=== PATIENT | female | born 1970 | race Hispanic/Latino ===

== ENCOUNTER → 2024-11-20 | Day surgery (SDC) | payer BC ==
[2024-11-09 09:55] LABS: BASOPHILS % 0.8 % (0.0-1.0); EOSINOPHILS % 1.3 % (0.0-6.0); LYMPHOCYTES % 25.1 % (18.0-39.1); MONOCYTES % 8.5 % (4.4-11.3); NEUTROPHILS % 64.0 % (38.7-80.0); RED CELL DISTRIBUTION WIDTH 12.5 % (11.7-14.4)
[2024-11-09 10:17] LABS: INR 1.02
[2024-11-09 10:26] LABS: EST GLOMERULAR FILTRATION RATE 106.0 ML/MIN (>=60)
[~2024-11-20] MED LIST: ACETAMINOPHEN 1000 MG/100 ML 100 ML IV ONE; ATROPINE SULFATE 1 MG/ML VIAL ONE; CEFAZOLIN SODIUM 2 GM ONE; DEXAMETHASONE SOD PHOS INJ 4 MG/ML SDV ONE; EPHEDRINE SULFATE INJ 50 MG/ML VIAL ONE; FENTANYL CITRATE/PF 100MCG/2 ML INJ ONE; KETOROLAC TROMETHAMINE 30 MG/ML VIAL ONE; LACTATED RINGER'S 1,000 ML ONE; LIDOCAINE HCL 2% LOCAL INJ 5 ML SDV VIAL INJ ONE; ONDANSETRON HCL INJ 2MG/ML 2ML 2 MG/ML VIAL ONE; PROPOFOL IV EMULSION 10 MG/ML 20 ML VIAL ONE; SEVOFLURANE INHAL SOLN 250 ML PEN BTL ONE
[2024-11-20 11:14] VITALS: TEMP 96.9
[2024-11-20] MEDS: HYDROCODONE/APAP 7.5MG-325MG 1 EA TAB ONE (12:00)
[2024-11-20] MEDS: KETOROLAC TROMETHAMINE 30 MG/ML VIAL IV ONE (12:41)
[2024-11-20 12:45] VITALS: BP 118/70; PULSE 50; RESP 16; O2SAT 100
== END | disposition home or self-care (01) ==
LOC: OR 07:21
PROVIDERS: ATTEND Orthopaedic Surgery
DX: S83.271A Complex tear of lateral meniscus, current injury, right knee, initial encounter (principal); S83.231A Complex tear of medial meniscus, current injury, right knee, initial encounter; X58.XXXA Exposure to other specified factors, initial encounter; M94.261 Chondromalacia, right knee; M65.861 Other synovitis and tenosynovitis, right lower leg; Z01.810 Encounter for preprocedural cardiovascular examination; Z01.812 Encounter for preprocedural laboratory examination
CPT/HCPCS: 29881; 29999; 36415; 71046; 80053; 85025; 85610; 85730; 93005; J0131; J0461; J1100; J1885; J2003; J2405; J2704; J3010; J7121